=== PATIENT | female | born 1955 | race Two or more races ===

== ENCOUNTER 2020-04-01 13:29 | Outpatient (CLI) | payer OTHER | END 2020-04-01 13:38 | disposition home or self-care (01) | LOC: MAMO-SONO 13:29 | PROVIDERS: ATTEND Internal Medicine | DX: Z12.31 Encounter for screening mammogram for malignant neoplasm of breast (principal); N60.01 Solitary cyst of right breast; N60.02 Solitary cyst of left breast ==

== ENCOUNTER 2020-04-20 12:24 | Outpatient (CLI) | payer OTHER | END 2020-04-20 13:25 | disposition home or self-care (01) | LOC: NUCLEAR 12:24 | PROVIDERS: ATTEND Obstetrics & Gynecology | DX: M81.0 Age-related osteoporosis without current pathological fracture (principal); Z13.820 Encounter for screening for osteoporosis ==

== ENCOUNTER → 2022-03-11 | Outpatient (CLI) | payer OTHER | END | disposition home or self-care (01) | LOC: NUCLEAR 11:29 | PROVIDERS: ATTEND Specialist | DX: M81.0 Age-related osteoporosis without current pathological fracture (principal); M81.8 Other osteoporosis without current pathological fracture ==

== ENCOUNTER 2022-03-24 07:25 | Outpatient (CLI) | payer OTHER | END 2022-03-24 07:29 | disposition home or self-care (01) | LOC: NUCLEAR 07:25 | PROVIDERS: ATTEND Specialist | DX: M13.0 Polyarthritis, unspecified (principal); M05.9 Rheumatoid arthritis with rheumatoid factor, unspecified; M06.9 Rheumatoid arthritis, unspecified; M05.00 Felty's syndrome, unspecified site | CPT/HCPCS: 78315; A9503 ==

== ENCOUNTER 2022-12-07 10:56 | Outpatient (CLI) | payer OTHER | END 2022-12-07 11:10 | disposition home or self-care (01) | LOC: SONOGRAMA 10:56 | DX: N63.20 Unspecified lump in the left breast, unspecified quadrant (principal) ==

== ENCOUNTER 2023-02-19 09:50 | Emergency (ER) | payer OTHER ==
[~2023-02-19] VITALS: Ht 152.4 cm; Wt 70.3 kg
== END 2023-02-19 11:13 | disposition home or self-care (01) ==
LOC: ER 09:50
DX: H10.89 Other conjunctivitis (principal); Z88.6 Allergy status to analgesic agent; E11.9 Type 2 diabetes mellitus without complications; I10 Essential (primary) hypertension; Z87.09 Personal history of other diseases of the respiratory system

== ENCOUNTER 2023-02-21 09:33 | Emergency (ER) | payer OTHER ==
[~2023-02-21] VITALS: Ht 152.4 cm; Wt 70.3 kg
== END 2023-02-21 16:09 | disposition home or self-care (01) ==
LOC: ER 09:33
DX: B34.9 Viral infection, unspecified (principal); Z88.6 Allergy status to analgesic agent; J45.909 Unspecified asthma, uncomplicated; R22.0 Localized swelling, mass and lump, head; H10.89 Other conjunctivitis

== ENCOUNTER 2023-11-17 09:59 | Outpatient (CLI) | payer OTHER | END 2023-11-17 10:04 | disposition home or self-care (01) | LOC: TOM 09:59 | PROVIDERS: ATTEND Ophthalmology | DX: H57.11 Ocular pain, right eye (principal) ==